=== PATIENT | male | born 1985 | race Caucasian/White ===

== ENCOUNTER 2018-05-23 15:19 | Inpatient (IN) | payer MEDICAID ==
[2018-05-23 15:42] LABS: PLATELET COUNT 338 10^3/uL (150-400)
[2018-05-23] MEDS ORDERED: NS 1,000 ML IV ONE ×2 (16:24→19:28)
--- NOTE | 2018-05-23 16:32 | EDPHY ---
H & P Stated Complaint: found down in park, pt alert but not answering questions, + etoh smell Time Seen by Provider: 05/23/18 16:18 HPI/ROS: CHIEF COMPLAINT: Intoxication HISTORY OF PRESENT ILLNESS: The patient is a 32-year-old man who was found in the park intoxicated. He is not answering questions. No reports of trauma. He is not able to ambulate. Paramedics brought him here for clearance. Nursing protocol ordered lab work which reveals a mild acidosis. He is also tachycardic. He has been given 1 L of fluids without change in his heart rate. He continues to be non verbal. He is moving around the bed and appears angry. Severity: Severe Modifying factors: None REVIEW OF SYSTEMS: Unable to obtain secondary to condition Physical Exam General Appearance: WD/WN, disheveled, no apparent distress, obtunded (But arousable with painful stimulation) EENT: PERRL/EOMI, normal ENT inspection, TMs normal, pharynx normal Neck: non-tender, full range of motion, supple, normal inspection Respiratory: chest non-tender, lungs clear, normal breath sounds Cardiac/Chest: Tachycardic, normal peripheral pulses, regular rate, rhythm, P Peripheral Pulses: 2+: carotid (R), carotid (L), femoral (R), femoral (L), dorsalis-pedis (R), dorsalis-pedis (L) Abdomen: normal bowel sounds, non-tender, soft Extremities: normal range of motion, non-tender, normal inspection, normal capillary refill Neurological: calm, boat tender II-XII NML as tested. No: alert (Somnolent) Appearance: appropriate appearance, appropriate insight, neat, denies illness Behavior/Eye Contact/Speech: cooperative, decreased rate of speech Thoughts/Hallucinations: normal thought pattern, no apparent hallucination Skin: normal color, warm/dry Source: Patient, EMS Exam Limitations: Intoxication - Personal History Current Tetanus/Diphtheria Vaccine: Unsure Current Tetanus Diphtheria and Acellular Pertussis (TDAP): Unsure - Medical/Surgical History Hx Asthma: No Hx Chronic Respiratory Disease: No Hx Diabetes: No Hx Cardiac Disease: No Hx Renal Disease: No Hx Cirrhosis: No Hx Alcoholism: No Hx HIV/AIDS: No Other PMH: not not answering questions - Social History Smoking Status: Unknown if ever smoked Alcohol Use: Heavy Constitutional: Initial Vital Signs Temperature (C) 36.4 C 05/23/18 15:30 Heart Rate 129 H 05/23/18 15:30 Respiratory Rate 18 05/23/18 15:30 Blood Pressure 141/77 H 05/23/18 15:30 O2 Sat (%) 98 05/23/18 15:30 O2 Delivery Mode Room Air O2 (L/minute) 0 Allergies/Adverse Reactions: No Known Allergies Allergy (Unverified 05/23/18 19:52) Home Medications: Medication Instructions Recorded Mirtazapine [Remeron] 30 mg PO HS 05/23/18 Propranolol HCl [Inderal 20mg (*)] 20 mg PO BID 05/23/18 Venlafaxine Xr [Effexor Xr] 300 mg PO DAILY 05/23/18 Medical Decision Making - Diagnostics EKG Interpretation: An EKG obtained and was read and documented in trace view. Please see trace view for full reading and report. Sinus tachycardia, poor baseline due to motion artifact, no obvious ischemic changes. ED Course/Re-evaluation: Patient is significantly tachycardic around 140. I will obtain an EKG. I will continue to hydrate with a 2nd L of fluids. His lab work done shows an anion gap. I will obtain a VBG, continue to hydrate and recheck. This may be alcoholic ketoacidosis. We will continue to observe for improvement. No sign of head injury. He had a cervical collar in place but no reports of trauma. I have cleared this. 6:40 p.m. the patient is easily arousable and clearly more sober. He is able to ambulate. He still inebriated however. She remains tachycardic for unknown reasons. He denies pain or palpitations or shortness of breath. No fever. 7:40 p.m. the patient's heart rate is improving to 130. He is more awake and alert. Will give him Ativan. He is not currently showing signs of withdrawal. Will also give him more fluids. This should be his 3rd L. The 9:15 p.m. The patient tells me that he is supposed to take propranolol for benign essential tremor. He has not taken it for the last couple of days. I wonder if he could be withdrawing. I will admit for further observation. His heart rate is currently 150. Differential Diagnosis: Partial list of the Differential diagnosis considered include but were not limited to; intoxication, polysubstance abuse, and although unlikely based on the history and physical exam, I also considered alcoholic ketoacidosis, infection, head injury. - Data Points Laboratory Results: Laboratory Results 05/23/18 15:30 05/24/18 03:34 05/24/18 03:34 Sodium 141 mEq/L mEq/L (135-145) Potassium 3.9 mEq/L mEq/L (3.3-5.0) Chloride 107 mEq/L mEq/L (97-110) Carbon Dioxide 27 mEq/l mEq/l (22-31) Anion Gap 7 mEq/L mEq/L (6-14) BUN 15 mg/dL mg/dL (7-23) Creatinine 0.8 mg/dL mg/dL (0.7-1.3) Estimated GFR > 60 Glucose 81 mg/dL mg/dL (70-100) Calcium 7.8 mg/dL L mg/dL (8.5-10.4) Phosphorus 3.3 mg/dL mg/dL (2.5-4.5) Magnesium 1.6 mg/dL mg/dL (1.6-2.3) Total Bilirubin 0.5 mg/dL mg/dL (0.1-1.4) AST 63 IU/L H IU/L (17-59) ALT 40 IU/L IU/L (21-72) Alkaline Phosphatase 55 IU/L IU/L (38-126) Total Protein 5.2 g/dL L g/dL (6.3-8.2) Albumin 3.0 g/dL L g/dL (3.5-5.0) Medications Given: Acetaminophen (Tylenol) 650 mg PO Q4HRS PRN PRN Reason: Pain, Mild/Fever, Can Take PO Stop: 11/19/18 23:04 Last Admin: 05/24/18 11:08 Dose: 650 mg Sodium Chloride (Ns) 1,000 mls @ 125 mls/hr IV CONT JACKIE Stop: 11/19/18 23:14 Last Admin: 05/23/18 23:46 Dose: 1,000 mls Thiamine HCl 500 mg/ Sodium (Chloride) 105 mls @ 210 mls/hr IV DAILY JACKIE Stop: 05/27/18 08:59 Last Admin: 05/24/18 09:19 Dose: 105 mls Lorazepam (Ativan Injection) 0 mg IVP Q1H PRN; Protocol PRN Reason: Alcohol Withdrawal w/IV access Stop: 11/19/18 23:05 Last Admin: 05/24/18 14:22 Dose: 2 mg Nicotine (Nicoderm Cq) 21 mg TD DAILY [facility] Stop: 11/19/18 23:14 Last Admin: 05/24/18 09:18 Dose: 21 mg Propranolol HCl (Inderal) 20 mg PO BID [facility] Stop: 11/20/18 09:59 Last Admin: 05/24/18 10:55 Dose: Not Given Venlafaxine HCl (Effexor Xr) 300 mg PO DAILY JACKIE Stop: 11/20/18 09:59 Last Admin: 05/24/18 11:07 Dose: 300 mg Discontinued Medications Sodium Chloride (Ns) 1,000 mls @ 0 mls/hr IV EDNOW ONE; Wide Open PRN Reason: Protocol Stop: 05/23/18 16:25 Last Admin: 05/23/18 16:28 Dose: 1,000 mls Sodium Chloride (Ns) 1,000 mls @ 0 mls/hr IV EDNOW ONE; Wide Open PRN Reason: Protocol Stop: 05/23/18 19:29 Last Admin: 05/23/18 19:28 Dose: 1,000 mls Lorazepam (Ativan) 1 mg PO EDNOW ONE Stop: 05/23/18 19:52 Last Admin: 05/23/18 19:51 Dose: 1 mg Lorazepam (Ativan Injection) 1 mg IVP EDNOW ONE Stop: 05/23/18 21:40 Last Admin: 05/23/18 21:58 Dose: 1 mg Mirtazapine (Remeron) 30 mg PO HS [facility] Stop: 11/19/18 23:29 Last Admin: 05/23/18 23:49 Dose: 30 mg Propranolol HCl (Inderal) 10 mg PO EDNOW ONE Stop: 05/23/18 21:21 Last Admin: 05/23/18 21:58 Dose: 10 mg Propranolol HCl (Inderal) 20 mg PO BID [facility] Stop: 11/20/18 08:59 Last Admin: 05/24/18 09:25 Dose: 20 mg Departure - Departure Disposition: [facility] Acute Clinical Impression: Tachycardia Alcoholic intoxication Qualifiers: Complication of substance-induced condition: with unspecified complication Qualified Code(s): F10.929 - Alcohol use, unspecified with intoxication, unspecified Condition: Fair
--- NOTE | 2018-05-23 17:21 | CPEKG ---
Test Reason : OPEN Blood Pressure : / mmHG Vent. Rate : 141 BPM Atrial Rate : 142 BPM P-R Int : 123 ms QRS Dur : 099 ms QT Int : 391 ms P-R-T Axes : 082 067 078 degrees QTc Int : 599 ms Sinus tachycardia Borderline ST elevation, anter leads Prolonged QT interval Confirmed by Bj Givens ([id number]) on 05/23/2018 5:20:50 PM Referred By: Confirmed By:Bj Givens
[2018-05-23] MEDS ORDERED: LORazepam 1 MG TAB ONE (19:44)
[2018-05-23] MEDS ORDERED: LORazepam 1 MG TAB PO ONE (19:51)
[2018-05-23] MEDS ORDERED: PROPRANOLOL HCL 20 MG TAB PO ONE (21:20)
[2018-05-23] MEDS ORDERED: LORazepam 2 MG/ML INJ IVP ONE (21:39)
[2018-05-23] MEDS ORDERED: ONDANSETRON DISINTEGRATING 4 MG TAB PO PRN (23:05)
[2018-05-23] MEDS ORDERED: ONDANSETRON 4 MG/2 ML VIAL IVP PRN (23:05)
[2018-05-23] MEDS ORDERED: FLUMAZENIL 0.5 MG/5 ML MDV IVP PRN (23:06)
[2018-05-23] MEDS ORDERED: NS 1,000 ML IV SCH (23:15)
[2018-05-23] MEDS ORDERED: MIRTAZAPINE 15 MG TAB PO SCH (23:30)
--- NOTE | 2018-05-23 23:31 | PDGENHP ---
History and Physical - Chief Complaint tachycardia, altered mental status - History of Present Illness Source-patient able to provide majority of the past medical history. He does not recall events leading up to his ER arrival. EMR was reviewed and case discussed with accepting hospitalist. HPI - this is a pleasant 32-year-old gentleman with a past medical history significant for anxiety, depression, essential tremor, homelessness and alcohol dependence who presents to the emergency department today on after he was found unresponsive and intoxicated. Patient reports a longstanding history of alcohol dependence. He reports that he does not drink every day but when he does will drink heavily to the point of passing out and that often hitting his head. Patient does not recall being brought into the emergency department. Patient is currently homeless. He was found in a park. He reports that he is chronically on propranolol at 20 mg twice daily for his essential tremor, Remeron 30 mg at HS and Effexor which he ran out of 2-3 days ago. Since that time patient reports that he has been having some increased fatigued and chest discomfort on without any chest pain shortness of breath or radiating pain. Patient reports that he feels like he is withdrawing from his Effexor. In the emergency department, patient was noted to have a mild metabolic acidosis. He was given IV fluids in the emergency department but remained quite tachycardic without any significant elevation in blood pressures. Patient 's mentation did slowly improved however patient's heart rate minimum remained in the 150s. Patient without any past cardiac history. No known family cardiac history either. History Information - Allergies/Home Medication List Allergies/Adverse Reactions: No Known Allergies Allergy (Unverified 05/23/18 19:52) Home Medications: Mirtazapine [Remeron] 30 mg PO HS 05/23/18 [Last Taken Unknown] Propranolol HCl [Inderal 20mg (*)] 20 mg PO BID 05/23/18 [Last Taken Unknown] Venlafaxine Xr [Effexor Xr] 300 mg PO 05/23/18 [Last Taken Unknown] I have personally reviewed and updated: family history, medical history, social history, surgical history - Past Medical History Additional medical history: Anxiety, depression, essential tremor, alcohol dependence - Surgical History Additional surgical history: Right ankle repair and ORIF. Patient reports several surgeries on his ankle following a mechanical fall on ice. - Family History Additional family history: Mother with history sciatica and opiate dependence - Social History Smoking Status: Current every day smoker Tobacco Use: Cigarettes (Patient smokes 1 pack per day) Alcohol Use: Heavy (Patient reports he drinks regularly but not necessarily every day. He usually drinks to the point of passing out.) Drug Use: Marijuana (Occasional), Other (Patient denies any other illicit drug use.) Additional social history: Patient is homeless residing at shelters when possible. Patient is desirous to find a bed in a work program. Cor status- full. Review of Systems Review of Systems: ROS: 10pt was reviewed & negative except for what was stated in HPI & below Constitutional: Reports: malaise. Denies: chills, fever EENMT: Reports: no symptoms Cardiac: Reports: chest pain (See HPI), syncope (Secondary to alcohol intoxication). Denies: lightheadedness, palpitations Respiratory: Denies: cough, shortness of breath Gastrointestinal: Reports: no symptoms Genitourinary: Reports: no symptoms Muscolosketal: Reports: no symptoms Skin: Reports: other (Abrasions to face) Neurological: Reports: no symptoms Hematologic/Lymphatic: Reports: no symptoms Physical Exam Physical Exam: Selected Entries 05/23/18 15:30 Blood Pressure Automatic Method Heart Rate 129 H Respiratory 18 Rate O2 Sat (%) 98 Temperature (C) 36.4 C Blood Pressure 141/77 H Mean Arterial 98 Pressure (MAP) O2 Delivery Room Air Mode Temperature Oral Source Temp Pulse Resp BP Pulse Ox 37.2 C 128 H 18 115/66 93 05/23/18 22:00 05/23/18 22:09 05/23/18 22:09 05/23/18 22:09 05/23/18 22:09 Constitutional: no apparent distress, other (NAD. Pleasant young adult gentleman is lying in bed awake.) Eyes: PERRL (Decreased reactivity light bilaterally but symmetric), anicteric sclera, EOMI, No scleral injection Ears, Nose, Mouth, Throat: poor dentition, dry mucous membranes, other (No nasal discharge) Cardiovascular: regular rate and rhythym (Tachycardia), no murmur, rub, or gallop, tachycardia (110s) Peripheral Pulses: 2+: dorsalis-pedis (R), dorsalis-pedis (L) Respiratory: no respiratory distress, no rales or rhonchi, clear to auscultation , No expiratory wheeze, No inspiratory crackles, No respiratory distress Gastrointestinal: normoactive bowel sounds, soft, non-tender abdomen, no palpable masses, No guarding, No distension Genitourinary: no bladder tenderness, No gaming in urethra Skin: abrasion (Left eyebrow, midline chin) Neurologic: AAOx3, sensation intact bilaterally, other (Grossly nonfocal exam.) , No facial droop Psychiatric: interacting appropriately, not anxious, thought process linear, flat affect, other (Patient is a little bit distractible turning on the TV and change the channels during interview eating a sandwich. He has some difficulties maintaining concentration during interview.), No anxious, No depressed, No suicidal ideation, No poor insight, No poor judgement Lab Data & Imaging Review 05/23/18 15:30 05/23/18 20:30 WBC 13.11 10^3/uL (3.80-9.50) H 05/23/18 15:30 RBC 5.48 10^6/uL (4.40-6.38) 05/23/18 15:30 Hgb 17.2 g/dL (13.7-17.5) 05/23/18 15:30 Hct 50.0 % (40.0-51.0) 05/23/18 15:30 MCV 91.2 fL (81.5-99.8) 05/23/18 15:30 MCH 31.4 pg (27.9-34.1) 05/23/18 15:30 MCHC 34.4 g/dL (32.4-36.7) 05/23/18 15:30 RDW 13.2 % (11.5-15.2) 05/23/18 15:30 Plt Count 338 10^3/uL (150-400) 05/23/18 15:30 MPV 8.3 fL (8.7-11.7) L 05/23/18 15:30 Neut % (Auto) 72.5 % (39.3-74.2) 05/23/18 15:30 Lymph % (Auto) 18.3 % (15.0-45.0) 05/23/18 15:30 [place] % (Auto) 8.2 % (4.5-13.0) 05/23/18 15:30 Eos % (Auto) 0.0 % (0.6-7.6) L 05/23/18 15:30 Baso % (Auto) 0.2 % (0.3-1.7) L 05/23/18 15:30 Nucleat RBC Rel Count 0.0 % (0.0-0.2) 05/23/18 15:30 Absolute Neuts (auto) 9.49 10^3/uL (1.70-6.50) H 05/23/18 15:30 Absolute Lymphs (auto) 2.40 10^3/uL (1.00-3.00) 05/23/18 15:30 Absolute Monos (auto) 1.08 10^3/uL (0.30-0.80) H 05/23/18 15:30 Absolute Eos (auto) 0.00 10^3/uL (0.03-0.40) L 05/23/18 15:30 Absolute Basos (auto) 0.03 10^3/uL (0.02-0.10) 05/23/18 15:30 Absolute Nucleated RBC 0.00 10^3/uL (0-0.01) 05/23/18 15:30 Immature Gran % 0.8 % (0.0-1.1) 05/23/18 15:30 Immature Gran # 0.11 10^3/uL (0.00-0.10) H 05/23/18 15:30 Puncture Site VENOUS 05/23/18 17:30 Patient Temperature 37.0 DEGREES 05/23/18 17:30 VBG pH 7.30 (7.31-7.42) L 05/23/18 17:30 VBG HCO3 20 mEQ/L (22-26) L 05/23/18 17:30 VBG Total CO2 21 mEq/L (21-27) 05/23/18 17:30 VBG O2 Saturation 90 % (65-75) H 05/23/18 17:30 VBG Base Excess -5.6 mEq/L (-2.5-2.5) L 05/23/18 17:30 Mixed VBG pCO2 42 mmHg (40-44) 05/23/18 17:30 Mixed VBG pO2 73 mmHG (35-40) H 05/23/18 17:30 Sodium 142 mEq/L (135-145) 05/23/18 20:30 Potassium 4.2 mEq/L (3.3-5.0) 05/23/18 20:30 Chloride 111 mEq/L (97-110) H 05/23/18 20:30 Carbon Dioxide 21 mEq/l (22-31) L 05/23/18 20:30 Anion Gap 9 mEq/L (6-14) 05/23/18 20:30 BUN 12 mg/dL (7-23) 05/23/18 20:30 Creatinine 0.7 mg/dL (0.7-1.3) 05/23/18 20:30 Estimated GFR > 60 05/23/18 20:30 Glucose 79 mg/dL (70-100) 05/23/18 20:30 Calcium 7.3 mg/dL (8.5-10.4) L 05/23/18 20:30 Total Bilirubin 0.4 mg/dL (0.1-1.4) 05/23/18 15:30 Conjugated Bilirubin 0.2 mg/dL (0.0-0.5) 05/23/18 15:30 Unconjugated Bilirubin 0.2 mg/dL (0.0-1.1) 05/23/18 15:30 AST 86 IU/L (17-59) H 05/23/18 15:30 ALT 44 IU/L (21-72) 05/23/18 15:30 Alkaline Phosphatase 89 IU/L (38-126) 05/23/18 15:30 Total Protein 7.6 g/dL (6.3-8.2) 05/23/18 15:30 Albumin 4.8 g/dL (3.5-5.0) 05/23/18 15:30 Urine Opiates Screen NEGATIVE ng/mL (NEGATIVE) 05/23/18 16:44 Urine Barbiturates NEGATIVE ng/mL (NEGATIVE) 05/23/18 16:44 Ur Phencyclidine Scrn NEGATIVE ng/mL (NEGATIVE) 05/23/18 16:44 Ur Amphetamines Screen NEGATIVE ng/mL (NEGATIVE) 05/23/18 16:44 U Benzodiazepines Scrn NEGATIVE ng/mL (NEGATIVE) 05/23/18 16:44 Urine Cocaine Screen NEGATIVE ng/mL (NEGATIVE) 05/23/18 16:44 U Marijuana (THC) Screen NEGATIVE ng/mL (NEGATIVE) 05/23/18 16:44 Ethyl Alcohol 409 mg/dL (0-10) H* 05/23/18 15:30 EKG additional interpertation: sinus tach 140s. QTc 599. listed possible ST elevations however there is motion artifact limiting evaluation anterior leads. otherwise without acute changes. Assessment & Plan Assessment: 32 yo M with pmhx significant for anxiety, depression,alcohol dependence currently homeless who presents to the ED after he was found intoxicated in the park and unresponsive. #Alcoholic intoxication (Acute) - Patient mentation has improved. patient without evidence of withdrawal at this moment however with history of elevated alcohol level and dependence [facility] treatment plan in place. cessation encouraged. patient reports he is interested in a work/residential program as well as for other resources. Social work consult ordered. #Tachycardia (Acute) - likely multifactorial including alcohol intoxication, dehydration, possible anti-depressant withdrawal. resume patient propranolol of which patient received dose in the ED. continue IVF hydration. monitor on tele. resume patient antidepressants. #metabolic acidosis - likely 2/2 alcohol intoxication/ketosis vs less likely starvation ketosis. continue IVF. repeat bmp in AM. #leukocytosis - likely reactive in setting of alcohol intoxications, dehydration and metabolic acidosis. no suspected infectious process based patient si/sx. chronic medical issues #anxiety/depression - resume patient remeron, effexor. ativan prn. SW consult for health care resources/care at discharge to refill meds. # essential tremor - propranolol FEN - IVF continue overnight. encourage po hydration. electrolyte monitoring and replacement prn. diet as tolerated. PPX - SCDs. holding anticoagulation. overall low risk. encourage ambulation if gait steady. COR - FULL. Dispo - Admit to observation on PCU floor for monitoring of tachycardia. anticipate less than 2 midnight stay with improvement in acidosis and tachycardia.
[2018-05-23] MEDS: NICOTINE 21 MG/24 HR PATCH TD SCH (23:33)
[2018-05-23] MEDS: LORazepam 2 MG/ML INJ IVP PRN (23:44)
[2018-05-24] MEDS: LORazepam 2 MG/ML INJ IVP PRN ×7 (00:59→23:38)
--- NOTE | 2018-05-24 08:46 | ASMTCMCOM ---
CM Note CM Note Notes: Chart reviewed for discharge planning purposes. 32 year old male admitted via ED after being found down in the park. HX significant for ETOH, Nicotine abuse, anxiety and depression. Patient is homeless per report and ran out of medications for his depression. CM to follow and offer resources for path to home as well as addiction recovery services, Plan: TBD, likely dc to streets/ custodial bed when medically cleared for discharge. Date Signed: 05/24/2018 08:45 AM Electronically Signed By:Keisha Torres RN
[2018-05-24] MEDS ORDERED: PROPRANOLOL HCL 20 MG TAB PO SCH (09:00)
[2018-05-24] MEDS: NICOTINE 21 MG/24 HR PATCH TD SCH ×2 (09:18→23:39)
[2018-05-24] MEDS: THIAMINE HCL 500 MG in NS 100 ML IV SCH (09:19)
--- NOTE | 2018-05-24 10:10 | HOSPPROG ---
Hospitalist Progress Note Assessment/Plan: * Etoh withdrawal -continue Ativan per CIWA * Essential tremor -propranolol * Anxiety/depression -restart Effexor and Remeron * Leukocytosis -suspect stress - recheck am Subjective: Feels better Objective: Vital Signs Temp Pulse Resp BP Pulse Ox 36.4 C 92 16 111/65 98 05/24/18 07:36 05/24/18 09:25 05/24/18 07:36 05/24/18 09:25 05/24/18 07:36 Laboratory Results 05/24/18 03:34 05/23/18 05/24/18 05/25/18 05:59 05:59 05:59 Intake Total 3100 Output Total 800 Balance 3100 -800 EKG viewed, my personal interpretation is - sinus tachy tele reviewed - NSR - Physical Exam Constitutional: no apparent distress, appears nourished, not in pain Cardiovascular: regular rate and rhythym, no murmur, rub, or gallop Respiratory: no respiratory distress, no rales or rhonchi, clear to auscultation Gastrointestinal: normoactive bowel sounds, soft, non-tender abdomen, no palpable masses Skin: no rashes or abrasions, no fluctuance, no induration Neurologic: AAOx3, sensation intact bilaterally Psychiatric: interacting appropriately, not anxious, not encephalopathic, thought process linear ICD10 Worksheet Patient Problems: Problems Problem Status Onset Alcoholic intoxication Acute Tachycardia Acute
[2018-05-24] MEDS: PROPRANOLOL HCL 20 MG TAB PO SCH ×2 (10:55→23:39)
[2018-05-24] MEDS: VENLAFAXINE XR 150 MG CAP PO SCH (11:07)
[2018-05-24] MEDS: ACETAMINOPHEN 325 MG TAB PO PRN ×2 (11:08→23:40)
--- NOTE | 2018-05-24 15:20 | PDMN ---
Medical Necessity Medical necessity[place] [facility] [id number]/o: 32 yo w/ acute etoh intoxication, acute tachycardia, metabolic acidosis and leukocytosis. Pt cont w / tachycardia today, cont need for IVF and IV Ativan on CIWA protocol, elevated WBC 13.11, needs re-check in am, pt will require another MN for ongoing monitoring and tx. Change to IP status per MD order 05/24/18@0959
[2018-05-24] MEDS ORDERED: PNEUMOCOCCAL 0.5ML VACCINE VIAL IM ONE (17:56)
[2018-05-24] MEDS: MIRTAZAPINE 15 MG TAB PO SCH (23:38)
[2018-05-25] MEDS: LORazepam 2 MG/ML INJ IVP PRN ×5 (05:53→21:34)
[2018-05-25] MEDS: THIAMINE HCL 500 MG in NS 100 ML IV SCH (08:08)
[2018-05-25] MEDS: NICOTINE 21 MG/24 HR PATCH TD SCH (08:08)
[2018-05-25] MEDS: PROPRANOLOL HCL 20 MG TAB PO SCH ×2 (08:08→21:32)
[2018-05-25] MEDS: VENLAFAXINE XR 150 MG CAP PO SCH (08:08)
[2018-05-25 08:19] LABS: PLATELET COUNT 204 10^3/uL (150-400)
[2018-05-25] MEDS: ACETAMINOPHEN 325 MG TAB PO PRN (10:07)
[2018-05-25] MEDS: chlordiazePOXIDE 25 MG CAP PO PRN ×2 (12:54→21:34)
[2018-05-25] MEDS ORDERED: LORazepam 2 MG/ML INJ IVP ONE (14:33)
--- NOTE | 2018-05-25 15:23 | ASMTCMCOM ---
CM Note CM Note Notes: Spoke with patient's RN who has spoke to [employer] diving coach. He has apparently been in and out of multiple recovery programs with no real success. He has been rejected by his family in [place]. Last night he was found drinking the hand machine pan greaser His women's lacrosse coach recommends that upon discharge the patient somehow gets to [facility]. I did call there and they can only take people who are intoxicated and can only hold them 2-3 days. She did suggest [facility] in [place] or [facility] where the patient could remain for a longer period of time. [facility] is a residential program requiring a 2 year commitment and finally [facility] [place] [facility]. I will discuss this with his nurse. CM to follow. Plan: TBD Date Signed: 05/25/2018 03:23 PM Electronically Signed By:Keisha Torres RN
--- NOTE | 2018-05-25 15:23 | HOSPPROG ---
Hospitalist Progress Note Assessment/Plan: * Etoh withdrawal -very high Ativan usage over last 24 hours -drank hand assistant director of admissions off wall last night -wean benzos, transition to PO * Metabolic encephalopathy with agitation -bad night, very agitated -improved today * Essential tremor -propranolol * Anxiety/depression -restart Effexor and Remeron * Tobacco dependence -patch Counsellor Breana [phone] Psychiatrist Yudi Colon [phone] -he has given us permission to speak with them candidly Subjective: Drank hand assistant director of admissions off wall last night Objective: Vital Signs Temp Pulse Resp BP Pulse Ox 36.7 C 102 H 13 133/79 H 95 05/25/18 15:05 05/25/18 15:05 05/25/18 15:05 05/25/18 15:05 05/25/18 15:05 Laboratory Results 05/25/18 08:01 05/24/18 05/25/18 05/26/18 05:59 05:59 05:59 Intake Total 4002 400 Output Total 2100 400 Balance 1902 0 - Time Spent With Patient Time Spent with Patient: greater than 35 minutes (lots of drama regarding patient and his demands for drugs) Time Spent with Patient: Greater than 35 minutes spent on this patients care, greater than 50% of time spent counseling, educating, and coordinating care regarding the above mentioned plan. - Physical Exam Constitutional: no apparent distress, appears nourished, not in pain Cardiovascular: regular rate and rhythym, no murmur, rub, or gallop Respiratory: no respiratory distress, no rales or rhonchi, clear to auscultation Gastrointestinal: normoactive bowel sounds, soft, non-tender abdomen, no palpable masses Skin: no rashes or abrasions, no fluctuance, no induration Neurologic: AAOx3, sensation intact bilaterally Psychiatric: interacting appropriately, not anxious, not encephalopathic, thought process linear ICD10 Worksheet Patient Problems: Problems Problem Status Onset Alcoholic intoxication Acute Tachycardia Acute
[2018-05-25] MEDS: MIRTAZAPINE 15 MG TAB PO SCH (21:31)
[2018-05-26] MEDS: NICOTINE 21 MG/24 HR PATCH TD SCH (08:47)
[2018-05-26] MEDS: VENLAFAXINE XR 150 MG CAP PO SCH (08:48)
[2018-05-26] MEDS: LORazepam 2 MG/ML INJ IVP PRN ×5 (08:48→20:22)
[2018-05-26] MEDS: chlordiazePOXIDE 25 MG CAP PO PRN ×2 (08:48→14:38)
[2018-05-26] MEDS: PROPRANOLOL HCL 20 MG TAB PO SCH ×2 (08:48→20:22)
[2018-05-26] MEDS: THIAMINE HCL 500 MG in NS 100 ML IV SCH (10:49)
--- NOTE | 2018-05-26 13:49 | HOSPPROG ---
Hospitalist Progress Note Assessment/Plan: * Etoh withdrawal -benzo use coming down -librium TID PRN, try to avoid IV ativan as able * Metabolic encephalopathy with agitation -improved today, he is calm * Essential tremor -propranolol * Anxiety/depression -restarted Effexor and Remeron * Tobacco dependence -patch Counsellor Breana [phone] Psychiatrist Yudi Colon [phone] -he has given us permission to speak with them candidly Dispo: remain inpatient. he is homeless. CM discussing with his counsellor and will provide additional resources. hopefully dc tomorrow Subjective: Calm this AM, had ok night. Appetite ok, no n/v. Objective: Vital Signs Temp Pulse Resp BP Pulse Ox 36.3 C 62 16 109/71 98 05/26/18 11:13 05/26/18 11:13 05/26/18 11:13 05/26/18 11:13 05/26/18 11:13 Laboratory Results 05/25/18 08:01 05/25/18 05/26/18 05/27/18 05:59 05:59 05:59 Intake Total 4002 750 930 Output Total 2100 1275 550 Balance 1902 -525 380 - Physical Exam Constitutional: no apparent distress, appears nourished, not in pain Eyes: PERRL, anicteric sclera, EOMI Ears, Nose, Mouth, Throat: moist mucous membranes, hearing normal, ears appear normal, no oral mucosal ulcers, other (several abrasions on head) Cardiovascular: regular rate and rhythym, no murmur, rub, or gallop Respiratory: no respiratory distress, no rales or rhonchi, clear to auscultation Gastrointestinal: normoactive bowel sounds, soft, non-tender abdomen, no palpable masses Genitourinary: no bladder fullness, no bladder tenderness, no renal bruits Skin: no rashes or abrasions, no fluctuance, no induration Musculoskeletal: full muscle strength, no muscle tenderness, normal joint ROM Neurologic: AAOx3, sensation intact bilaterally, other (no tongue fasciculations or hand tremor) Psychiatric: interacting appropriately, not anxious, not encephalopathic, thought process linear ICD10 Worksheet Patient Problems: Problems Problem Status Onset Alcoholic intoxication Acute Tachycardia Acute
--- NOTE | 2018-05-26 16:03 | ASMTCMCOM ---
CM Note CM Note Notes: Spoke with pt who stated he is hoping to get in to [facility], a supportive sober living prison here in [place]. He is working with his retail performance coach Breana [phone]. Left message for Breana today. He is currently homeless - he is from [place] and his parents live here. They are supportive but he feels he has burned bridges with them. He asked about resuming his 300 mg of Wellbutrin, informed RN. Date Signed: 05/26/2018 04:02 PM Electronically Signed By:PASTORA Moss
--- NOTE | 2018-05-26 16:33 | ASMTCMCOM ---
CM Note CM Note Notes: Spoke with rBeana, pt's assistant women's rowing coach. She is recommending pt be discharged to the [facility] at [address] in [place], a mental health center in [facility] that pt has been seen at before. The psychiatrist there will work wth him on his medications. Please contact them when pt is discharged [phone] and send him by Medicaid cab. Date Signed: 05/26/2018 04:33 PM Electronically Signed By:PASTORA Moss
[2018-05-26] MEDS: ACETAMINOPHEN 325 MG TAB PO PRN (18:14)
[2018-05-26] MEDS: MIRTAZAPINE 15 MG TAB PO SCH (20:22)
[2018-05-27] MEDS: THIAMINE HCL 100 MG TAB PO SCH ×2 (04:28→08:40)
[2018-05-27] MEDS: NICOTINE 21 MG/24 HR PATCH TD SCH (08:39)
[2018-05-27] MEDS: chlordiazePOXIDE 25 MG CAP PO PRN (08:40)
[2018-05-27] MEDS: VENLAFAXINE XR 150 MG CAP PO SCH (08:40)
[2018-05-27] MEDS: PROPRANOLOL HCL 20 MG TAB PO SCH (08:40)
[2018-05-27] MEDS: LORazepam 2 MG/ML INJ IVP PRN (08:40)
[2018-05-27] MEDS ORDERED: traMADol 50 MG TAB PO PRN (11:33)
[2018-05-27 11:57] VITALS: BP 116/76
[2018-05-27] MEDS ORDERED: traMADol 50 MG TAB PO ONE (12:45)
[2018-05-27] MEDS: ACETAMINOPHEN 325 MG TAB PO PRN (13:05)
--- NOTE | 2018-05-27 14:20 | ASDISCHSUM ---
Discharge Information Plan Status:Home with No Needs Medically Cleared to Leave: Discharge Date: CM D/C Disposition:Home, Routine, Self-Care ADT D/C Disposition:Home, Routine, Self-Care Projected Discharge Date: Transportation at D/C:Medicaid Transportation Discharge Delay Reason: Follow-Up Date: Discharge Slot: Final Diagnosis: Placement Information Patient Contact Information Contact Name:TEJA Relationship: Address: Home Phone: Work Phone: City: Alternate Phone: State/[place] Code: Email: Financial Information Financial Class:Medicaid Primary Plan Desc:[employer] [place] Primary Plan Number:[id number] Secondary Plan Desc: Secondary Plan Number: Assessment Information [facility] Progress Note CM Note CM Note Notes: Chart reviewed for discharge planning purposes. 32 year old male [place] via ED [place]. HX significant for ETOH, Nicotine abuse, anxiety and depression. Patient is homeless per report and ran out of medications for his depression. CM to follow and offer resources for path to home as well as addiction recovery services, Plan: TBD, likely dc to streets/ skilled nursing bed when medically cleared for discharge. Date Signed: 05/24/2018 08:45 AM Electronically Signed By:Keisha Torres RN [facility] CM Progress Note CM Note CM Note Notes: Spoke with patient's RN who has spoke to [employer]'s recovery collector. He has apparently been in and out of multiple recovery programs with no real success. He has been rejected by his family in [place]. Last night he was found drinking the hand [employer] His math coach recommends that upon discharge the patient somehow gets to [facility]. I did call there and they can only take people who are intoxicated and can only hold them 2-3 days. She did suggest [facility] [place] or [facility] where the patient could remain for a longer period of time. [facility] is a residential program requiring a 2 year commitment and finally [facility]. I will discuss this with his nurse. MARCUS to follow. Plan: TBD Date Signed: 05/25/2018 03:23 PM Electronically Signed By:Keisah Torres RN [facility] Progress Note CM Note CM Note Notes: Spoke with pt who stated he is hoping to get in to [facility], a supportive sober living skilled nursing here in [place]. He is working with his recovery collector Breana [phone]. Left message for Breana today. He is currently homeless - he is from [place] and his parents live here. They are supportive but he feels he has burned bridges with them. He asked about resuming his 300 mg of Wellbutrin, informed RN. Date Signed: 05/26/2018 04:02 PM Electronically Signed By:PASTORA Moss [facility] Progress Note CM Note CM Note Notes: Spoke with pauline Toussaint's recovery collector. She is recommending pt be discharged to the [facility] at [address] in [place], a mental health center in [facility] that pt has been seen at before. The psychiatrist there will work wth him on his medications. Please contact them when pt is discharged [phone] and send him by Medicaid cab. Date Signed: 05/26/2018 04:33 PM Electronically Signed By:PASTORA Moss Case Management Discharge Plan Note Case Management Discharge Discharge Order Complete? Answers: Yes Patient to Obtain Answers: Independently Medications Transportation Arranged Answers: Other Notes: Tax[employer] Medicaid Transport will Pick (Date 05/27/2018 03:30 PM & Time) Discharge Comments Notes: Pt is d/layo home independently, but upon d/c taken to [facility] in [place]. [facility] informed and math coach, kelvin Toussaint. Date Signed: 05/27/2018 02:19 PM Electronically Signed By:Johanna Lester Intervention Information
--- NOTE | 2018-05-27 14:20 | ASMTDCNOTE ---
Case Management Discharge Discharge Order Complete? Answers: Yes Patient to Obtain Answers: Independently Medications Transportation Arranged Answers: Other Notes: Taxi Medicaid Transport will Pick (Date 05/27/2018 03:30 PM & Time) Discharge Comments Notes: Pt is d/layo home independently, but upon d/c taken to [facility] in [place]. [facility] informed and assistant basketball coach, kelvin Toussaint. Date Signed: 05/27/2018 02:19 PM Electronically Signed By:Johanna Lester
--- NOTE | 2018-05-27 19:31 | PDDCSUM ---
Discharge Summary Discharge Summary: Date of Admission: 05/23/2018 Date of Discharge: 05/27/2018 Discharge Diagnoses: 1. EtOH intoxication and withdrawal 2. Metabolic encephalopathy with agitation 3. Metabolic acidosis 4. Anxiety, depression 5. Essential tremor 6. Tobacco dependence 7. Homelessness Brief Hospital Course: 32yo M with h/o etoh abuse was brought in after being found intoxicated on the street. He began to withdraw from etoh and was placed on CIWA protocol. He had agitated delirium associated with this. He was caught attempting to consume the hand owner [employer] off the wall. His withdrawal improved and was requiring minimal benzodiazepines at discharge. Case management discussed with his counsellor ( Breana, ) who recommended we discharge him to the [facility], which we did. Medications: Please refer to EMR for complete list. No changes were made this admission. Follow Up Plan: 1. F/u with his established psychiatrist 2. Continue working on etoh cessation Physical Exam: Vitals reviewed and stable. Alert and oriented without hand tremor, tongue fasciculations or diaphoresis. RRR without m/r/g, lungs clear, abdomen soft. Mild abrasions on head and hands.
== END 2018-05-27 14:21 | disposition home or self-care (01) | DRG 775 ==
LOC: EDBD 15:19 → F2W 22:17 → OBSVTOIN 05-24 09:59
PROVIDERS: ADMIT Internal Medicine; ATTEND Internal Medicine
DX: F10.229 Alcohol dependence with intoxication, unspecified (principal); F10.239 Alcohol dependence with withdrawal, unspecified; F41.8 Other specified anxiety disorders; E87.2 Acidosis; R45.1 Restlessness and agitation; G25.0 Essential tremor; F17.210 Nicotine dependence, cigarettes, uncomplicated; Z59.0 Homelessness; Z23 Encounter for immunization
CPT/HCPCS: 80307; 96374; 97161-GP; G0008; G0009; G0378; G0480; J2060; J3411